=== PATIENT | female | born 1975 | race Caucasian/White ===

== ENCOUNTER 2016-03-11 09:04 | Inpatient (IN) | payer OTHER ==
[~2016-03-11] VITALS: Ht 157.5 cm; Wt 59.0 kg
[2016-03-11] MEDS ORDERED: IV SET PRIMARY PUMP SET 1 EA INFUS.SET MC ONE ×3 (09:28→15:15)
[2016-03-11] MEDS ORDERED: IV NS 0.9% 1,000 ML ONE (09:28)
[2016-03-11] MEDS ORDERED: MORPHINE SULFATE INJ 4 MG/ML DISP.SYRIN ONE ×2 (09:28→10:40)
[2016-03-11] MEDS ORDERED: ONDANSETRON HCL/PF 4 MG/2 ML VIAL ONE (09:28)
[2016-03-11] MEDS ORDERED: ONDANSETRON HCL/PF 4 MG/2 ML VIAL IVP ONE (09:30)
[2016-03-11] MEDS ORDERED: IV NS 0.9% 1,000 ML BAG IV ONE ×2 (09:30→12:30)
[2016-03-11] MEDS ORDERED: MORPHINE SULFATE INJ 2 MG/ML DISP.SYRIN IV ONE ×2 (09:30→11:00)
[2016-03-11] MEDS ORDERED: DEXAMETHASONE 1 MG TABLET PO ONE (09:30)
[2016-03-11 09:35] LABS: BASOPHILS % (AUTO) 0.2 % (0.0-2.0); DIFF TOTAL % 100 %; EOSINOPHILS % (AUTO) 0.5 % (0.0-6.0); HEMATOCRIT 42 % (33-45); HEMOGLOBIN 13.9 g/dL (11.5-14.8); LYMPHOCYTES % (AUTO) 21.1 % (20.0-44.0); MEAN CORPUSCULAR HEMOGLOBIN 30 PG (26.0-33.0); MEAN CORPUSCULAR HGB CONC 33 g/dl (31.0-36.0); MEAN CORPUSCULAR VOLUME 89 fL (82-100); MONOCYTES # (AUTO) 0.7 /CMM (0.1-1.30); NEUTROPHILS # (AUTO) 6.8 /CMM (1.8-8.9); NEUTROPHILS % (AUTO) 71.2 % (43.0-81.0); PLATELET COUNT (AUTO) 375 /CMM (150-450); WHITE BLOOD COUNT (AUTO) 9.5 K/uL (4.3-11.0)
[2016-03-11 09:42] LABS: KETONES,URINE TRACE (NEGATIVE); LEUKOCYTE ESTERASE ,URINE NEGATIVE (NEGATIVE)
[2016-03-11 09:45] LABS: CALCIUM, SERUM 9.3 mg/dL (8.5-10.1); CREATININE 0.7 mg/dL (0.6-1.3); POTASSIUM 3.5 mmol/L (3.5-5.1); PREGNANCY TEST URINE QUAL NEGATIVE (NEGATIVE)
[2016-03-11 09:46] LABS: ADD UA MICROSCOPIC YES
[2016-03-11 09:50] LABS: ALBUMIN 4.2 g/dL (3.4-5.0); BILIRUBIN,DIRECT 0.1 mg/dL (0.0-0.2); BILIRUBIN,TOTAL 0.6 mg/dL (0.2-1.0); INDIRECT BILIRUBIN 0.5 mg/dL (0.0-1.1)
[2016-03-11 10:04] LABS: ADD URINE CULTURE NO; WBC,URINE 0-2 /HPF (0-3)
[2016-03-11] MEDS ORDERED: KETOROLAC TROMETHAMINE INJ 30 MG/ML VIAL ONE (10:50)
[2016-03-11] MEDS ORDERED: HYDROMORPHONE 1 MG/1 ML DISP.SYRIN IV ONE (11:00)
[2016-03-11] MEDS ORDERED: KETOROLAC TROMETHAMINE INJ 30 MG/ML VIAL IV ONE ×2 (11:00)
[2016-03-11] MEDS ORDERED: HYDROMORPHONE 1 MG/1 ML DISP.SYRIN ONE ×2 (11:01→13:40)
[2016-03-11] MEDS ORDERED: LIDOCAINE HCL/PF 1% 30 ML SDV ONE (11:52)
[2016-03-11] MEDS ORDERED: BUPIVACAINE MPF W/EPI 0.25% 30 ML VIAL ONE (11:52)
[2016-03-11] MEDS ORDERED: VANCOMYCIN 1 GM in IV D5W 250 ML IV ONE (12:30)
[2016-03-11] MEDS ORDERED: MORPHINE SULFATE INJ 2 MG/ML DISP.SYRIN IV PRN ×3 (12:30→14:00)
[2016-03-11] MEDS ORDERED: ACETAMINOPHEN 650 MG/SUPP.RECT RC PRN (12:30)
[2016-03-11] MEDS ORDERED: HYDROMORPHONE INJ 2 MG/ML DISP.SYRIN ONE (13:17)
[2016-03-11] MEDS ORDERED: FENTANYL PF 100MCG/2ML AMPUL ONE ×2 (13:20→13:26)
[2016-03-11] MEDS ORDERED: ROCURONIUM BROMIDE 50 MG/5 ML ONE (13:20)
[2016-03-11] MEDS ORDERED: MIDAZOLAM HCL 2 MG/2ML VIAL ONE (13:20)
[2016-03-11] MEDS ORDERED: SUCCINYLCHOLINE CHLORIDE 20 MG/ML VIAL ONE (13:20)
[2016-03-11] MEDS ORDERED: ANESTHESIA TRAY IN PYXIS 1 EA TRAY MC ONE (13:25)
[2016-03-11 13:50] LABS: ALBUMIN 3.6 g/dL (3.4-5.0); BILIRUBIN,DIRECT 0.3 mg/dL (0.0-0.2); BILIRUBIN,TOTAL 0.6 mg/dL (0.2-1.0); INDIRECT BILIRUBIN 0.3 mg/dL (0.0-1.1); TOTAL PROTEIN, SERUM 6.8 g/dL (6.4-8.2)
[2016-03-11] MEDS ORDERED: ZOLPIDEM TARTRATE 5 MG TABLET PO PRN (14:00)
[2016-03-11] MEDS ORDERED: HYDROCODONE/APAP 5/325MG 1 EACH TABLET PO PRN ×2 (14:00)
[2016-03-11 14:15] VITALS: BP 120/85
[2016-03-11] MEDS: HYDROMORPHONE INJ 2 MG/ML DISP.SYRIN IV PRN ×2 (15:13→19:11)
[2016-03-11] MEDS: IV D5/0.45 NACL W/20 MEQ KCL 1L IV PRN ×2 (15:18)
[2016-03-11 16:00] VITALS: BP 122/71
[2016-03-11] MEDS ORDERED: PIPERACILLIN /TAZOBACTAM 3.375 G in IV D5W 50 ML IV SCH (18:00)
[2016-03-11 20:00] VITALS: BP 104/54
[2016-03-11] MEDS: ANCEF 1 GM/50 ML D5W IV SCH ×2 (21:27)
[2016-03-11] MEDS: ONDANSETRON HCL/PF 4 MG/2 ML VIAL IVP PRN (21:27)
[2016-03-11] MEDS ORDERED: SECONDARY IV SET 1 EA INFUS.SET MC ONE (21:30)
[2016-03-12] MEDS: HYDROMORPHONE INJ 2 MG/ML DISP.SYRIN IV PRN ×5 (01:12→20:09)
[2016-03-12] MEDS: IV D5/0.45 NACL W/20 MEQ KCL 1L IV PRN ×4 (02:23→18:28)
[2016-03-12] MEDS: ANCEF 1 GM/50 ML D5W IV SCH ×6 (04:37→20:10)
[2016-03-12 07:20] LABS: ALBUMIN 3.3 g/dL (3.4-5.0); BILIRUBIN,TOTAL 0.3 mg/dL (0.2-1.0); CALCIUM, SERUM 8.6 mg/dL (8.5-10.1); CREATININE 0.6 mg/dL (0.6-1.3); POTASSIUM 4.4 mmol/L (3.5-5.1); TOTAL PROTEIN, SERUM 6.5 g/dL (6.4-8.2)
[2016-03-12 07:27] LABS: BASOPHILS % (AUTO) 0.2 % (0.0-2.0); DIFF TOTAL % 100 %; EOSINOPHILS % (AUTO) 0.3 % (0.0-6.0); HEMATOCRIT 34 % (33-45); HEMOGLOBIN 11.3 g/dL (11.5-14.8); LYMPHOCYTES # (AUTO) 2.7 /CMM (0.8-4.8); LYMPHOCYTES % (AUTO) 22.6 % (20.0-44.0); MEAN CORPUSCULAR HEMOGLOBIN 30 PG (26.0-33.0); MEAN CORPUSCULAR HGB CONC 34 g/dl (31.0-36.0); MEAN CORPUSCULAR VOLUME 90 fL (82-100); MONOCYTES # (AUTO) 1.2 /CMM (0.1-1.30); MONOCYTES % (AUTO) 9.9 % (2.0-12.0); PLATELET COUNT (AUTO) 319 /CMM (150-450); RED BLOOD CELL COUNT(AUTO) 3.73 MIL/uL (4.0-5.2)
[2016-03-12 08:00] VITALS: BP 111/59
[2016-03-12] MEDS: PANTOPRAZOLE 40 MG TABLET.DR PO SCH (08:50)
[2016-03-12] MEDS ORDERED: SECONDARY IV SET 1 EA INFUS.SET MC ONE (12:45)
[2016-03-12] MEDS: Magnesium 1GM/D5W 100ML PREMIX 100 ML IV SCH ×2 (12:48→14:02)
[2016-03-12 16:00] VITALS: BP 115/65
[2016-03-12 20:00] VITALS: BP 115/63
[2016-03-12 20:30] VITALS: BP 115/65
[2016-03-13] MEDS: HYDROMORPHONE INJ 2 MG/ML DISP.SYRIN IV PRN ×3 (01:44→20:13)
[2016-03-13 04:41] VITALS: BP 106/63
[2016-03-13] MEDS: ANCEF 1 GM/50 ML D5W IV SCH ×6 (05:13→21:23)
[2016-03-13] MEDS: ONDANSETRON HCL/PF 4 MG/2 ML VIAL IVP PRN (06:22)
[2016-03-13] MEDS: IV D5/0.45 NACL W/20 MEQ KCL 1L IV PRN ×2 (06:22)
[2016-03-13 07:00] LABS: BASOPHILS % (AUTO) 0.4 % (0.0-2.0); DIFF TOTAL % 100 %; EOSINOPHILS # (AUTO) 0.1 /CMM (0.0-0.7); EOSINOPHILS % (AUTO) 0.8 % (0.0-6.0); HEMATOCRIT 35 % (33-45); HEMOGLOBIN 11.6 g/dL (11.5-14.8); LYMPHOCYTES # (AUTO) 2.9 /CMM (0.8-4.8); LYMPHOCYTES % (AUTO) 32.6 % (20.0-44.0); MEAN CORPUSCULAR HEMOGLOBIN 30 PG (26.0-33.0); MEAN CORPUSCULAR HGB CONC 33 g/dl (31.0-36.0); MEAN CORPUSCULAR VOLUME 90 fL (82-100); MONOCYTES # (AUTO) 0.9 /CMM (0.1-1.30); MONOCYTES % (AUTO) 10.7 % (2.0-12.0); NEUTROPHILS # (AUTO) 4.9 /CMM (1.8-8.9); NEUTROPHILS % (AUTO) 55.5 % (43.0-81.0); PLATELET COUNT (AUTO) 327 /CMM (150-450); RED BLOOD CELL COUNT(AUTO) 3.92 MIL/uL (4.0-5.2); WHITE BLOOD COUNT (AUTO) 8.8 K/uL (4.3-11.0)
[2016-03-13 07:09] LABS: CALCIUM, SERUM 8.7 mg/dL (8.5-10.1); CREATININE 0.5 mg/dL (0.6-1.3)
[2016-03-13 07:24] LABS: PHOSPHORUS 3.6 mg/dL (2.5-4.9)
[2016-03-13] MEDS: PANTOPRAZOLE 40 MG TABLET.DR PO SCH (07:48)
[2016-03-13 08:00] VITALS: BP 117/66
[2016-03-13 08:02] VITALS: BP 117/66
[2016-03-13] MEDS ORDERED: SECONDARY IV SET 1 EA INFUS.SET MC ONE (11:00)
[2016-03-13] MEDS: Magnesium 1GM/D5W 100ML PREMIX 100 ML IV SCH ×2 (11:03→12:19)
[2016-03-13 16:00] VITALS: BP 106/58
[2016-03-13 16:50] VITALS: BP 106/58
[2016-03-13 20:00] VITALS: BP 112/65
[2016-03-14] VITALS: BP 109/52
[2016-03-14] MEDS: HYDROMORPHONE INJ 2 MG/ML DISP.SYRIN IV PRN (00:31)
[2016-03-14] MEDS: ANCEF 1 GM/50 ML D5W IV SCH ×2 (04:53)
[2016-03-14] MEDS: PANTOPRAZOLE 40 MG TABLET.DR PO SCH (07:44)
[2016-03-14 08:00] VITALS: BP 113/68
[2016-03-14] MEDS ORDERED: Magnesium 1GM/D5W 100ML PREMIX 100 ML IV SCH (12:30)
== END 2016-03-14 11:35 | disposition home or self-care (01) | DRG 263 ==
LOC: ER 09:05 → OBSER 12:15 → MEDSG2 14:42
PROVIDERS: ADMIT Internal Medicine; ATTEND Internal Medicine
PROC: 0FT44ZZ Resection of Gallbladder, Percutaneous Endoscopic Approach (ICD-10-PCS; principal; 2016-03-11 12:39)
DX: K80.00 Calculus of gallbladder with acute cholecystitis without obstruction (principal); F17.200 Nicotine dependence, unspecified, uncomplicated; Z82.3 Family history of stroke; Z80.9 Family history of malignant neoplasm, unspecified
CPT/HCPCS: 36415; 71010-TC; 76705-TC; 80048-TC; 80053-TC; 80076-TC; 81000-TC; 83605-TC; 83690-TC; 83735-TC; 84100-TC; 84703-TC; 85025-TC; 87040-TC; 87070-TC; 87081-TC; 87086-TC; 88304-TC; 88305-TC; A4606; J0330; J0690; J1100; J1170; J1885; J2250; J2270; J2405; J2704; J2710; J3010; J3475; J3480; J3490; J7030; J7060; Z7610